=== PATIENT | female | born 1945 | race Caucasian/White ===

== ENCOUNTER → 2023-09-06 11:46 | Outpatient (REF) | payer MEDICARE, OTHER, SELFPAY | LOC: DHCBC/DCA 11:46 | PROVIDERS: ATTENDING PHYSICIAN Internal Medicine; FAMILY PHYSICIAN Family Medicine | DX: R07.9 Chest pain, unspecified (principal); I25.10 Atherosclerotic heart disease of native coronary artery without angina pectoris | CPT/HCPCS: 78452; 93017; A9500; J2785 ==

== ENCOUNTER → 2024-08-17 13:29 | Outpatient (REF) | payer MEDICARE, OTHER, SELFPAY | LOC: WDC 13:29 | PROVIDERS: ATTENDING PHYSICIAN Family Medicine | DX: Z12.31 Encounter for screening mammogram for malignant neoplasm of breast (principal) | CPT/HCPCS: 77063; 77067 ==

== ENCOUNTER → 2024-11-07 14:06 | Outpatient (REF) | payer MEDICARE, OTHER, SELFPAY | LOC: HWRAD 14:06 | PROVIDERS: ATTENDING PHYSICIAN Internal Medicine Endocrinology, Diabetes & Metabolism; FAMILY PHYSICIAN Family Medicine | DX: E04.2 Nontoxic multinodular goiter (principal) | CPT/HCPCS: 76536 ==

== ENCOUNTER → 2025-01-08 13:37 | Outpatient (REF) | payer MEDICARE, OTHER, SELFPAY | LOC: RCS 13:37 | PROVIDERS: ATTENDING PHYSICIAN Internal Medicine; FAMILY PHYSICIAN Family Medicine | DX: I50.32 Chronic diastolic (congestive) heart failure (principal); I35.1 Nonrheumatic aortic (valve) insufficiency; I36.1 Nonrheumatic tricuspid (valve) insufficiency | CPT/HCPCS: 93306 ==

== ENCOUNTER 2025-01-09 22:32 | Emergency (ER) | payer MEDICARE, OTHER, SELFPAY ==
[2025-01-09 22:35] VITALS: BP 158/80
[2025-01-10 00:57] VITALS: BMI 29.0
--- NOTE | 2025-01-10 01:36 | ED.GENMED ---
History of Present Illness
General
Chief Complaint: Skin Problem
Source: patient
Exam Limitations: none
Time Seen by Provider: 01/10/25 01:28
Nursing documentation reviewed up to this point in time: agreed with
History of Present Illness
History of Present Illness:
79-year-old female with a past medical history of hypertension, hyperlipidemia, diverticulitis, presents emergency department today with concerns of a laceration to her right knee. Patient reports that she was walking down the porch outside of her
house when she tripped over the last 2 stairs and fell forward, hitting her head on the pavement and injuring her right knee. Patient mariel laceration. She received a tetanus vaccination last year. She denies dizziness or headaches but notes some
mild pain to her right side of the face and around her right eye. She denies any visual changes. She denies any double vision. She had any nausea or vomiting. She denies any paresthesias. She notes some mild left-sided neck pain.
Past History
Past History
ED Past Medical History: None
Review of Systems
Review of Systems
All Other Systems: ROS reviewed and negative except as documented in HPI and ROS
Phy Exam
Physical Exam
Physical Exam:
General: Patient is well appearing and in no acute distress; non-toxic
Skin: 8.5 cm laceration noted over the right knee
Head: Small right sided frontal hematoma. Mild tenderness noted over the right stigmatic process.
Eyes: Sclera non-icteric. EOMs intact. No entrapment.
Cardiac: Regular rate, no tenderness palpation over the external chest wall
Peripheral Vascular: No lower extremity swelling or edema
Pulm: Normal respiratory effort
Abdomen: No abdominal tenderness to palpation
Musculoskeletal: Full range of motion of bilateral upper and lower extremities
Neuro: CN II-XII intact, no focal neurologic deficits.
Psychiatric: Appropriate mood and affect.
Course
Orders/Labs/Results
Orders:
Orders
01/10/25 01:40
CT Cervical Spine W/o Iv Contr Urgent
Comment:
Reason For Exam: neck pain following fall
CT Head W/o Iv Contrast Urgent
Comment:
Reason For Exam: right headache following fall
CR Knee- Right 4 Or More View* Urgent
Comment:
Reason For Exam: right knee pain
01/10/25 02:18
CT Facial Bones W/o Iv Contras Urgent
Comment:
Reason For Exam: RIGHT EYE PAIN, ZYGOMATIC PAIN
Vital Signs
Initial and Last Documented VS:
Initial Vital Signs
Temp Pulse Resp BP Pulse Ox
98.0 F 84 19 158/80 98
01/09/25 22:35 01/09/25 22:35 01/09/25 22:35 01/09/25 22:35 01/09/25 22:35
Last Documented Vital Signs
Temp Pulse Resp BP Pulse Ox
98.0 F 72 16 128/69 99
01/09/25 22:35 01/10/25 05:53 01/10/25 05:53 01/10/25 05:53 01/10/25 05:53
Procedures
Laceration Closure
Right Knee:
Status of Wound: clean
Size of Wound in cm: 8.5
Description of Wound Edges: flap-well vascularized
Preparation: cleaned with saline
Anesthesia: 1% Lidocaine with epi
Revision/Debridement: routine- no revision
Wound exploration: explored to base- no FB
Type of Closure: single layer closure
Skin Closure Material: 4-0 nylon
Number of sutures: 14
MDM/Problems Addressed
Differential Diagnosis Includes:
Differential includes laceration, tibial plateau fracture, knee contusion, subdural hematoma, epidural hematoma, concussion, orbital fracture
MDM/Problems Addressed:
79-year-old female with a past medical history of hypertension, hyperlipidemia, diverticulitis, presents emergency department today with concerns of a laceration to her right knee. Patient reports that she was walking down the porch outside of her
house when she tripped over the last 2 stairs and fell forward, hitting her head on the pavement and injuring her right knee. On exam she is well-appearing in no acute distress. Her laceration was repaired with stitches. She tolerated the
procedure well. Considering that size of the wound and extended wound, patient will be started on Keflex for prophylaxis. Patient placed in a dressing. Patient stable for discharge. Considering she hit her head, she did have CAT scans of the
facial bones head and the cervical spine which was negative for any acute fracture or bleeding within the brain. Advise follow-up with primary. Patient stable for discharge.
Chronic conditions affecting care:
Hypertension, hyperlipidemia, diverticular
*Pulse Oximetry
Patient hypoxic: no
*Critical Care Note
Total Time (30-74mins, 75-104mins- exclusive of procedures): Not Applicable
Data Reviewed
Review of Other/Old Records Reveals: Records (No hospital discharge summaries to review)
Source: patient and records
ED Attending Note
-
Portions of this chart may have been created with voice recognition software.� Occasional wrong word or��sound alike� substitutions may have occurred due to the inherent limitations of voice recognition software.
Discharge Plan
Departure
Patient Disposition: Home (Routine Discharge)
Date of Disposition: 01/10/25
Time of Disposition: 04:48
Patient with high blood pressure during this ER visit?: Yes
Condition: Good
Discharge Problem:
Laceration of knee, Acute head trauma, Facial pain
Instructions: Wound Care (DC), Stitches - ED discharge instructions
Prescriptions:
New
cephalexin 500 mg capsule
500 mg PO TID 7 Days Qty: 21 0RF
No Action
Ambien
5 mg PO HS
calcium 600 mg Capsule
600 mg PO DAILY
Vitamin C 300 mg Tablet,Chewable
300 mg PO DAILY
sennosides [senna] 8.6 mg Tablet
1 mg PO DAILY
tramadol 50 mg Tablet
50 mg PO BID
zinc 25 mg Tablet
25 mg PO DAILY
losartan [Cozaar] 25 mg Tablet
25 mg PO DAILY
diclofenac potassium [Cataflam] 50 mg Tablet
50 mg PO DAILY
docusate sodium [Colace] 100 mg Capsule
100 mg PO DAILY
furosemide [Lasix] 20 mg Tablet
20 mg PO DAILY
coenzyme Q10 [CoQ-10] 30 mg Capsule
1 mg PO DAILY
rosuvastatin 10 mg Tablet
10 mg PO DAILY
Probiotic 20 billion cell Capsule, Sprinkle
1 cap PO DAILY
Vitamin D3
2,000 mg PO DAILY
Referrals:
Joshua Gonsalez DO [Family Provider, Family Practice]
Activity Restrictions/Additional Instructions:
Please report to your primary care provider, urgent care, or the emergency department to have your stitches removed in 7 to 10 days.
Because of the size of your wound, we will be starting you on a antibiotic to prevent infection. You can take 1 tablet 3 times daily for 7 days.
Please keep the wound dry for 24 hours. After 24 hours, you can change your dressing once daily and let warm soapy water run over the wound. Please not scrub the wound. Please not use hydrogen peroxide or alcohol over the wound.
PLEASE RETURN THE EMERGENCY ROOM IF YOU DEVELOP DIZZINESS, LIGHTHEADEDNESS, CHEST PAIN, SHORTNESS OF BREATH, HEADACHES, PURULENT DRAINAGE FROM THE WOUND, SURROUNDING REDNESS, INCREASING PAIN OR SWELLING, OR ANY OTHER SIGNS OR SYMPTOMS WORRISOME TO
YOU.
Interventions
Interventions:
*Risk Screen - Suicide Last Done: 01/09/25 22:35
*General Assessment Last Done: 01/10/25 05:53
*Neglect/Abuse Screening Last Done: 01/09/25 22:35
*ED- Fall Risk Assessment Last Done: 01/10/25 05:53
*ED COVID-19 Vaccine History Last Done: 01/10/25 05:53
*Nursing Disposition Last Done: 01/10/25 05:53
ED-Skin Assessment Last Done: 01/10/25 04:14
Discharge Date and Time
Discharge Date/Time: 01/10/25 06:00
Print Language: KYRGYZ
[2025-01-10 04:14] VITALS: BP 132/74
[2025-01-10 05:53] VITALS: BP 128/69
== END 2025-01-10 06:00 | disposition home or self-care (01) ==
LOC: EMR 22:32
PROVIDERS: EMERGENCY PHYSICIAN Emergency Medicine; FAMILY PHYSICIAN Family Medicine
DX: S81.011A Laceration without foreign body, right knee, initial encounter (principal); S00.83XA Contusion of other part of head, initial encounter; M54.2 Cervicalgia; W10.8XXA Fall (on) (from) other stairs and steps, initial encounter; I10 Essential (primary) hypertension; E78.5 Hyperlipidemia, unspecified
CPT/HCPCS: 12004; 99284; 70450; 70486; 72125; 73564

== ENCOUNTER 2025-01-23 21:05 | Emergency (ER) | payer MEDICARE, OTHER, SELFPAY ==
[2025-01-23 21:11] VITALS: BP 127/78
[2025-01-23 21:31] LABS: % Basophils 0.7 % (0-2); % Eosinophils 2.1 % (0-6); % Immature Granulocytes 0.3 % (0-0.5); % Lymphocytes 16.9 % (20.5-51.1); % Monocytes 7.9 % (1.7-9.3); % Neutrophils 72.1 % (42.2-75.2); Absolute Basophils 0.1 10^3/uL (0-0.2); Absolute Eosinophils 0.2 10^3/uL (0-0.7); Absolute Lymphocytes 1.3 10^3/uL (1.2-3.4); Absolute Monocytes 0.6 10^3/uL (0.1-0.6); Absolute Neutrophils 5.5 10^3/uL (1.4-6.5); Hematocrit 39.6 % (37.0-47.0); Mean Corp Hgb Conc. 32.8 g/dL (33.0-37.0); Mean Corpuscular Hgb 26.8 pg (27.0-31.0); Mean Corpuscular Volume 81.6 fL (81.0-99.0); Mean Platelet Volume 8.7 fL (7.4-10.4); Nucleated Red Blood Cells % 0 %; Platelet Count 258 10^3/uL (130-400); Red Blood Cell Count 4.85 10^6/uL (4.20-5.40); Red Cell Dist. Width 15.9 % (11.5-14.5); White Blood Cell Count 7.6 10^3/uL (4.8-10.8)
[2025-01-23 21:42] LABS: Lactic Acid 0.7 mmol/L (0.7-2.0)
[2025-01-23 21:44] LABS: ALT (SGPT) 25 U/L (0-35); AST (SGOT) 37 U/L (14-36); Albumin 4.4 g/dl (3.5-5.0); Alkaline Phosphatase 64 U/L (38-126); Blood Urea Nitrogen 38 mg/dl (7-17); Calcium 10.1 mg/dl (8.4-10.2); Carbon Dioxide 23 mmol/L (22-30); Chloride 109 mmol/L (98-107); Glucose 124 mg/dl (70-99); Potassium 3.7 mmol/L (3.5-5.1); Sodium 141 mmol/L (135-145); Total Bilirubin 0.8 mg/dl (0.2-1.3); Total Protein 6.9 g/dl (6.3-8.2); eGFR > 60.00
[2025-01-23 23:24] VITALS: BMI 26.8
--- NOTE | 2025-01-24 00:41 | ED.GENMED ---
History of Present Illness
General
Chief Complaint: Skin Problem
Source: patient, previous radiology exam (Radiologic studies during ED visit January 10. Unremarkable knee x-ray, unremarkable CAT scans.) and previous hospital records (ED visit January 10)
Exam Limitations: none
Time Seen by Provider: 01/24/25 00:15
Nursing documentation reviewed up to this point in time: agreed with
History of Present Illness
History of Present Illness:
This is an 79-year-old woman who suffered a mechanical fall January 10 with resultant 8 sonometer horizontal flap type laceration right anterior knee which required suture repair�14 sutures.
Right knee x-ray unremarkable. CT of the head, facial bones unremarkable. She was placed on a 1 week course of Keflex which she completed.
She has been following with her primary care physician with most recent visit yesterday, Tuesday, January 22 with note of increased redness and pain to her right anterior knee as well as mild local drainage from the lateral aspect of the knee. She was
started on Keflex yesterday, initially 3 times daily, increased to 4 times daily today.
She is concerned with continued redness and now noted some redness anterior mid to proximal tibia. She has not had a fever nor chills.
She has been taking tramadol intermittently for pain.
She denies calf pain nor swelling. she has been quite active on a daily basis.
Past History
Past History
ED Past Medical History: HTN, Hypercholesterolemia and Other (Scleroderma, Raynaud's phenomenon)
ED Past Surgical History: Gynecological and Orthopedic
Social History
Tobacco: Non-smoker
Alcohol: None
Personal:
Living: with family
Employment: Retired
Family History
Family History: Other (Noncontributory)
Phy Exam
Physical Exam
Physical Exam:
GENERAL: 79-year-old woman appears somewhat younger than stated age, bright and alert, pleasant, appears in no acute distress. Afebrile. Vital signs within normal limits.
EYE: anicteric
ENT: oral mucosa is moist. No rhinorrhea.
CARDIAC: Regular rate and rhythm. no murmur.
LUNGS: Clear breath sounds bilaterally, no acute respiratory distress, no wheezes/rales/rhonchi
ABDOMEN: Soft, nondistended, without focal tenderness
NEUROLOGICAL: Alert and oriented x3, no focal neuro deficits. Gait is tomlin and steady.
SKIN: Warm and dry, normal color, good turgor.
MUSCULOSKELETAL: Right anterior knee with 8 cm sutured horizontal laceration. There is moderate local erythema, mild ecchymosis distal mid aspect of the wound and mild crusting along the distal aspect of the wound. There is very minimal palpable
heat, minimal local tenderness but no soft tissue swelling, no fluctuance, no discernible drainage nor exudate. There is very mild erythema anterior proximal tibia. There is no ascending lymphangitis. No peripheral edema. Calf is supple without
appreciable tenderness. No palpable cords. There is no joint effusion, full knee range of motion without difficulty nor pain. peripheral pulses are full and equal b/l.
PSYCH: Normal and appropriate interaction.
Course
Orders/Labs/Results
Orders:
Orders
01/23/25 21:22
Complete Blood Count/With Diff Urgent
Comprehensive Metabolic Panel Urgent
Lactic Acid Urgent
01/24/25 00:57
Wound Culture [Wound/Abscess/Other Culture] Urgent
CARMELO Source: Knee
Specimen Description: Right
Date Specimen was Collected: 01/24/25
Time Specimen was Collected: 00:46
Comment: sutured wound right anterior knee
Abnormal Lab Results
01/23/25
21:22
MCH 26.8 L pg
(27.0-31.0)
MCHC 32.8 L g/dL
(33.0-37.0)
RDW 15.9 H %
(11.5-14.5)
Lymphocytes % 16.9 L %
(20.5-51.1)
Chloride 109 H mmol/L
(98-107)
BUN 38 H mg/dl
(7-17)
Glucose 124 H mg/dl
(70-99)
AST 37 H U/L
(14-36)
01/23/25 21:22
01/23/25 21:22
Vital Signs
Initial and Last Documented VS:
Initial Vital Signs
Temp Pulse Resp BP Pulse Ox
98.0 F 89 20 127/78 98
01/23/25 21:11 01/23/25 21:11 01/23/25 21:11 01/23/25 21:11 01/23/25 21:11
Last Documented Vital Signs
Temp Pulse Resp BP Pulse Ox
98.0 F 84 20 127/78 98
01/23/25 21:11 01/23/25 23:25 01/23/25 23:25 01/23/25 21:11 01/24/25 00:43
MDM/Problems Addressed
Differential Diagnosis Includes:
Concern for wound infection, cellulitis.
There is mild to moderate focal erythema around sutured wound right anterior knee but no appreciable drainage. No ascending lymphangitis. There is very minimal erythema to anterior de la cruz without palpable heat. There is no swelling, no calf
tenderness, no joint effusion.
Patient was started on Keflex just yesterday, thus has only been 24 hours of antibiotic, initially 3 times daily, increased to 4 times daily today.
Reassuring that she is afebrile and no reported fever nor subjective fever.
Labs are also reassuring with normal white blood cell count, normal lactic acid.
No history of immunocompromise nor history of diabetes.
Partial suture removal. I have removed 8 out of 14 sutures. 6 sutures remain. There is very minimal dehiscence of superficial skin along the lateral aspect of the wound. There is no appreciable drainage, no evidence of exudate, no fluctuance.
Steri-Strips have been placed over the wound and wound culture obtained.
I do suspect a focal wound infection, mild early cellulitis but with reassuring labs, no fever and Keflex initiated just 24 hours ago at this point has not definitively failed outpatient antibiotics.
Recommend continuing Keflex 4 times daily with strict return precautions.
Recommend prompt return if erythema worsens over the next 24 hours especially if accompanied with fever.
Patient has a follow-up appointment with her PCP on Tuesday, tomorrow, January 25.
Recommend these residual [address] for an additional 4 days.
*Pulse Oximetry
SaO2: 98
Oxygen Mode of Delivery: Room air
Patient hypoxic: no
*Critical Care Note
Total Time (30-74mins, 75-104mins- exclusive of procedures): Not Applicable
ED Attending Note
-
Portions of this chart may have been created with voice recognition software.� Occasional wrong word or��sound alike� substitutions may have occurred due to the inherent limitations of voice recognition software.
Discharge Plan
Departure
Patient Disposition: Home (Routine Discharge)
Date of Disposition: 01/24/25
Time of Disposition: 00:49
Patient with high blood pressure during this ER visit?: No
Condition: Good
Discharge Problem:
Posttraumatic wound infection
Instructions: Cellulitis (Skin Infection), Adult (DC)
Prescriptions:
No Action
Ambien
5 mg PO HS
calcium 600 mg Capsule
600 mg PO DAILY
Vitamin C 300 mg Tablet,Chewable
300 mg PO DAILY
sennosides [senna] 8.6 mg Tablet
1 mg PO DAILY
tramadol 50 mg Tablet
50 mg PO BID
zinc 25 mg Tablet
25 mg PO DAILY
losartan [Cozaar] 25 mg Tablet
25 mg PO DAILY
diclofenac potassium [Cataflam] 50 mg Tablet
50 mg PO DAILY
docusate sodium [Colace] 100 mg Capsule
100 mg PO DAILY
furosemide [Lasix] 20 mg Tablet
20 mg PO DAILY
coenzyme Q10 [CoQ-10] 30 mg Capsule
1 mg PO DAILY
rosuvastatin 10 mg Tablet
10 mg PO DAILY
Probiotic 20 billion cell Capsule, Sprinkle
1 cap PO DAILY
Vitamin D3
2,000 mg PO DAILY
cephalexin 500 mg capsule
500 mg PO TID 7 Days Qty: 21 0RF
Referrals:
Joshua Gonsalez, [Family Provider, Family Practice] - Tomorrow
Activity Restrictions/Additional Instructions:
Continue cephalexin 500 mg 4 times daily.
Keep Steri-Strips clean and dry.
Follow-up with your primary care physician on Tuesday as already scheduled.
If redness worsens over the next 24�48 hours or if you develop a fever with continued redness about the knee, prompt return to the ED for further evaluation.
Interventions
Interventions:
*Risk Screen - Suicide Last Done: 01/24/25 01:11
*General Assessment Last Done: 01/23/25 21:15
*Neglect/Abuse Screening Last Done: 01/23/25 21:11
*ED- Fall Risk Assessment Last Done: 01/24/25 01:11
*ED COVID-19 Vaccine History Last Done: 01/24/25 01:11
*Nursing Disposition Last Done: 01/24/25 01:11
ED-Skin Assessment Last Done: 01/23/25 23:25
Discharge Date and Time
Discharge Date/Time: 01/24/25 01:12
Print Language: MAORI
== END 2025-01-24 01:12 | disposition home or self-care (01) ==
LOC: EMR 21:05
PROVIDERS: Emergency Medicine; EMERGENCY PHYSICIAN Emergency Medicine; FAMILY PHYSICIAN Family Medicine
DX: S81.011A Laceration without foreign body, right knee, initial encounter (principal); L08.9 Local infection of the skin and subcutaneous tissue, unspecified; W19.XXXA Unspecified fall, initial encounter; I10 Essential (primary) hypertension; E78.00 Pure hypercholesterolemia, unspecified
CPT/HCPCS: 99283; 80053; 83605; 85025; 87070; 87205

== ENCOUNTER → 2025-02-22 08:01 | Outpatient (REF) | payer MEDICARE, OTHER, SELFPAY | LOC: WOUND 08:01 | PROVIDERS: ATTENDING PHYSICIAN Surgery; FAMILY PHYSICIAN Family Medicine | DX: S81.011A Laceration without foreign body, right knee, initial encounter (principal); L97.812 Non-pressure chronic ulcer of other part of right lower leg with fat layer exposed; M34.1 CR(E)ST syndrome; I89.0 Lymphedema, not elsewhere classified; L94.0 Localized scleroderma [morphea]; I35.1 Nonrheumatic aortic (valve) insufficiency; I34.0 Nonrheumatic mitral (valve) insufficiency; W19.XXXA Unspecified fall, initial encounter | CPT/HCPCS: 11042; 99203 ==

== ENCOUNTER → 2025-03-08 08:53 | Outpatient (REF) | payer MEDICARE, OTHER, SELFPAY | LOC: WOUND 08:53 | PROVIDERS: ATTENDING PHYSICIAN Surgery | DX: S81.011A Laceration without foreign body, right knee, initial encounter (principal); L97.812 Non-pressure chronic ulcer of other part of right lower leg with fat layer exposed; I89.0 Lymphedema, not elsewhere classified; L94.0 Localized scleroderma [morphea]; I35.1 Nonrheumatic aortic (valve) insufficiency; I34.0 Nonrheumatic mitral (valve) insufficiency | CPT/HCPCS: 11042 ==

== ENCOUNTER → 2025-03-15 14:48 | Outpatient (REF) | payer MEDICARE, OTHER, SELFPAY | LOC: WOUND 14:48 | PROVIDERS: ATTENDING PHYSICIAN Surgery; FAMILY PHYSICIAN Family Medicine | DX: S81.011A Laceration without foreign body, right knee, initial encounter (principal); L97.812 Non-pressure chronic ulcer of other part of right lower leg with fat layer exposed; M34.1 CR(E)ST syndrome; I89.0 Lymphedema, not elsewhere classified; I35.1 Nonrheumatic aortic (valve) insufficiency; I34.0 Nonrheumatic mitral (valve) insufficiency; W19.XXXA Unspecified fall, initial encounter | CPT/HCPCS: 11042 ==

== ENCOUNTER → 2025-03-22 14:16 | Outpatient (REF) | payer MEDICARE, OTHER, SELFPAY | LOC: WOUND 14:16 | PROVIDERS: ATTENDING PHYSICIAN Surgery; FAMILY PHYSICIAN Family Medicine | DX: S81.011A Laceration without foreign body, right knee, initial encounter (principal); L97.812 Non-pressure chronic ulcer of other part of right lower leg with fat layer exposed; M34.1 CR(E)ST syndrome; I89.0 Lymphedema, not elsewhere classified; I35.1 Nonrheumatic aortic (valve) insufficiency; I34.0 Nonrheumatic mitral (valve) insufficiency; W19.XXXA Unspecified fall, initial encounter | CPT/HCPCS: 11042 ==

== ENCOUNTER → 2025-03-29 10:48 | Outpatient (REF) | payer MEDICARE, OTHER, SELFPAY | LOC: WOUND 10:48 | PROVIDERS: ATTENDING PHYSICIAN Surgery; FAMILY PHYSICIAN Family Medicine | DX: S81.011A Laceration without foreign body, right knee, initial encounter (principal); L97.812 Non-pressure chronic ulcer of other part of right lower leg with fat layer exposed; I89.0 Lymphedema, not elsewhere classified; L94.0 Localized scleroderma [morphea]; I35.1 Nonrheumatic aortic (valve) insufficiency; I34.0 Nonrheumatic mitral (valve) insufficiency; W19.XXXA Unspecified fall, initial encounter | CPT/HCPCS: 11042 ==

== ENCOUNTER → 2025-04-05 14:49 | Outpatient (REF) | payer MEDICARE, OTHER, SELFPAY | LOC: WOUND 14:49 | PROVIDERS: ATTENDING PHYSICIAN Surgery; FAMILY PHYSICIAN Family Medicine | DX: S81.011A Laceration without foreign body, right knee, initial encounter (principal); L97.812 Non-pressure chronic ulcer of other part of right lower leg with fat layer exposed; M34.1 CR(E)ST syndrome; I89.0 Lymphedema, not elsewhere classified; L94.0 Localized scleroderma [morphea]; I35.1 Nonrheumatic aortic (valve) insufficiency; I34.0 Nonrheumatic mitral (valve) insufficiency; X58.XXXA Exposure to other specified factors, initial encounter | CPT/HCPCS: 11042 ==

== ENCOUNTER → 2025-04-19 14:42 | Outpatient (REF) | payer MEDICARE, OTHER, SELFPAY | LOC: WOUND 14:42 | PROVIDERS: ATTENDING PHYSICIAN Surgery; FAMILY PHYSICIAN Family Medicine | DX: S81.011A Laceration without foreign body, right knee, initial encounter (principal); L97.812 Non-pressure chronic ulcer of other part of right lower leg with fat layer exposed; I89.0 Lymphedema, not elsewhere classified; L94.0 Localized scleroderma [morphea]; I35.1 Nonrheumatic aortic (valve) insufficiency; I34.0 Nonrheumatic mitral (valve) insufficiency; W19.XXXA Unspecified fall, initial encounter | CPT/HCPCS: 11042 ==

== ENCOUNTER → 2025-04-26 14:29 | Outpatient (REF) | payer MEDICARE, OTHER, SELFPAY | LOC: WOUND 14:29 | PROVIDERS: ATTENDING PHYSICIAN Surgery; FAMILY PHYSICIAN Family Medicine | DX: S81.011A Laceration without foreign body, right knee, initial encounter (principal); L97.812 Non-pressure chronic ulcer of other part of right lower leg with fat layer exposed; W10.8XXA Fall (on) (from) other stairs and steps, initial encounter | CPT/HCPCS: 97597 ==

== ENCOUNTER → 2025-05-03 11:09 | Outpatient (REF) | payer MEDICARE, OTHER, SELFPAY | LOC: WOUND 11:09 | PROVIDERS: ATTENDING PHYSICIAN Surgery; FAMILY PHYSICIAN Family Medicine | DX: S81.011A Laceration without foreign body, right knee, initial encounter (principal); L97.812 Non-pressure chronic ulcer of other part of right lower leg with fat layer exposed; M34.1 CR(E)ST syndrome; L94.0 Localized scleroderma [morphea]; I35.1 Nonrheumatic aortic (valve) insufficiency; I34.0 Nonrheumatic mitral (valve) insufficiency; W10.8XXA Fall (on) (from) other stairs and steps, initial encounter | CPT/HCPCS: 17250; 99213 ==

== ENCOUNTER → 2025-05-10 11:15 | Outpatient (REF) | payer MEDICARE, OTHER, SELFPAY | LOC: WOUND 11:15 | PROVIDERS: ATTENDING PHYSICIAN Surgery; FAMILY PHYSICIAN Family Medicine | DX: S81.011A Laceration without foreign body, right knee, initial encounter (principal); L97.812 Non-pressure chronic ulcer of other part of right lower leg with fat layer exposed; I89.0 Lymphedema, not elsewhere classified; L94.0 Localized scleroderma [morphea]; I35.1 Nonrheumatic aortic (valve) insufficiency; I34.0 Nonrheumatic mitral (valve) insufficiency | CPT/HCPCS: 17250; 99213 ==

== ENCOUNTER 2025-05-17 14:17 | Outpatient (REF) | payer MEDICARE, OTHER, SELFPAY | END 2025-05-17 23:59 | disposition home or self-care (01) | LOC: WOUND 14:17 | PROVIDERS: ATTENDING PHYSICIAN Surgery; FAMILY PHYSICIAN Family Medicine | DX: S81.011A Laceration without foreign body, right knee, initial encounter (principal); L97.812 Non-pressure chronic ulcer of other part of right lower leg with fat layer exposed; I89.0 Lymphedema, not elsewhere classified; L94.0 Localized scleroderma [morphea]; I35.1 Nonrheumatic aortic (valve) insufficiency; I34.0 Nonrheumatic mitral (valve) insufficiency; W19.XXXA Unspecified fall, initial encounter | CPT/HCPCS: 99213 ==

== ENCOUNTER → 2025-05-24 14:20 | Outpatient (REF) | payer MEDICARE, OTHER, SELFPAY | LOC: WOUND 14:20 | PROVIDERS: ATTENDING PHYSICIAN Surgery; FAMILY PHYSICIAN Family Medicine | DX: S81.011A Laceration without foreign body, right knee, initial encounter (principal); L97.812 Non-pressure chronic ulcer of other part of right lower leg with fat layer exposed; I89.0 Lymphedema, not elsewhere classified; L94.0 Localized scleroderma [morphea]; I35.1 Nonrheumatic aortic (valve) insufficiency; I34.0 Nonrheumatic mitral (valve) insufficiency; W19.XXXA Unspecified fall, initial encounter | CPT/HCPCS: 99212 ==

== ENCOUNTER → 2025-05-28 15:36 | Outpatient (REF) | payer MEDICARE, OTHER, SELFPAY | LOC: REG 15:36 | PROVIDERS: ATTENDING PHYSICIAN Family Medicine | DX: M25.561 Pain in right knee (principal) | CPT/HCPCS: 73564 ==